=== PATIENT | female | born 1995 | race American Indian/Alaskan Native ===

== ENCOUNTER 2018-03-03 09:22 | Outpatient (CLI) | payer OTHER ==
[2018-03-03] MEDS ORDERED: PROVENTIL IH ONE (10:12)
== END 2018-03-03 09:23 | disposition home or self-care (01) ==
LOC: PF 09:22
PROVIDERS: ATTEND Internal Medicine
DX: Z02.71 Encounter for disability determination (principal); J45.909 Unspecified asthma, uncomplicated
CPT/HCPCS: 94060; 94640; 94729